=== PATIENT | female | born 2000 | race Caucasian/White ===

== ENCOUNTER 2022-08-03 17:53 | Emergency (ER) | payer OTHER ==
[~2022-08-03] VITALS: Ht 157.5 cm; Wt 83.9 kg
[2022-08-03 18:05] VITALS: BP 145/98; PULSE 77; RESP 17; TEMP 97.9; O2SAT 97
--- NOTE | 2022-08-03 18:10 | NUR ---
pt to beka reyez steady gait.
[2022-08-03 18:42] LABS: BASOPHILS # (AUTO) 0.1 K/uL (0.00-0.22); BASOPHILS % (AUTO) 0.6 % (0.0-2.0); EOSINOPHILS # (AUTO) 0.3 K/uL (0-0.4); EOSINOPHILS % (AUTO) 3.1 % (0.0-4.0); HEMATOCRIT 43.9 % (36-48); HEMOGLOBIN 15.6 g/dL (12.0-16.0); LYMPHOCYTES # (AUTO) 3.3 K/uL (2.5-16.5); LYMPHOCYTES % (AUTO) 31.1 % (20.5-51.1); MEAN CORPUSCULAR HEMOGLOBIN 30 pg (27-31); MEAN CORPUSCULAR HGB CONC 36 g/dL (33-37); MEAN CORPUSCULAR VOLUME 85.5 fL (80-94); MONOCYTES # (AUTO) 0.9 K/uL (0.8-1.0); MONOCYTES % (AUTO) 8.2 % (1.7-9.3); NEUTROPHILS # (AUTO) 6.1 K/uL (1.8-7.7); PLATELET COUNT (AUTO) 346 K/uL (140-450); RED BLOOD CELL COUNT(AUTO) 5.13 MIL/uL (4.20-5.40); RED CELL DISTRIBUTION WIDTH 12.7 % (11.6-13.7); WHITE BLOOD COUNT (AUTO) 10.7 K/uL (4.8-10.8)
[2022-08-03 18:52] LABS: BILIRUBIN,URINE NEGATIVE (NEGATIVE); BLOOD, URINE 3+ (NEGATIVE); LEUKOCYTE ESTERASE ,URINE TRACE (NEGATIVE); NITRITE, URINE POSITIVE (NEGATIVE); UGLUCOSE NEGATIVE (NEGATIVE)
[2022-08-03 18:53] LABS: APPEARANCE,URINE HAZY (CLEAR); COLOR,URINE AMBER (YELLOW)
[2022-08-03 18:55] LABS: ALBUMIN 4.2 g/dL (3.4-5.0); ANION GAP 10.6 (8-16); CARBON DIOXIDE 31.3 mmol/L (21-32); CREATININE 0.7 mg/dL (0.6-1.3); POTASSIUM 3.9 mmol/L (3.5-5.1); TOTAL BILIRUBIN 0.8 mg/dL (0.0-1.0)
[2022-08-03] MEDS ORDERED: IBUPROFEN 600 MG TAB PO ONE (18:55)
--- NOTE | 2022-08-03 19:03 | NUR ---
PT AMBULATED TO BED 5
--- NOTE | 2022-08-03 19:30 | NUR ---
Ultrasound at bedside.
--- NOTE | 2022-08-03 19:40 | NUR ---
pt resting on bed. A/Ox4. not i distress. on monitor
--- NOTE | 2022-08-03 21:53 | NUR ---
dr. suárez examining the pt.
[2022-08-03] MEDS ORDERED: NITR100C7 PO (22:18)
[2022-08-03] MEDS ORDERED: IBUP-2213 PO (22:18)
[2022-08-03] MEDS ORDERED: MEDR10TA PO (22:18)
[2022-08-03 22:27] VITALS: BP 134/90; PULSE 77; RESP 17; TEMP 97.9; O2SAT 97
--- NOTE | 2022-08-03 22:27 | NUR ---
Patient discharged with v/s stable. Written and verbal after care instructions given and explained. Patient alert, oriented and verbalized understanding of instructions. Ambulatory with steady gait. All questions addressed prior to discharge. ID band removed. Patient advised to follow up with PMD. Rx given to pt. Patient educated on indication of medication including possible reaction and side effects. Opportunity to ask questions provided and answered.
== END 2022-08-03 22:27 | disposition home or self-care (01) ==
LOC: MED 17:53
DX: N93.9 Abnormal uterine and vaginal bleeding, unspecified (principal); N39.0 Urinary tract infection, site not specified; Z79.899 Other long term (current) drug therapy
CPT/HCPCS: 36415; 76856; 80053; 81001; 81025; 85025; 87086; 93976; 99284; Q0092

== ENCOUNTER 2022-12-19 19:29 | Emergency (ER) | payer OTHER ==
[~2022-12-19] VITALS: Ht 160 cm; Wt 81.6 kg
[~2022-12-19 19:29] MED LIST: IBUP-2213 PO; MEDR10TA PO; NITR100C7 PO
[2022-12-19 19:47] VITALS: BP 167/87; PULSE 72; RESP 16; TEMP 97.2; O2SAT 98
[2022-12-19] MEDS ORDERED: IBUP-2213 PO (20:14)
[2022-12-19] MEDS ORDERED: SUD30 PO (20:14)
[2022-12-19] MEDS ORDERED: FLONAS NS (20:15)
[2022-12-19 20:21] VITALS: BP 167/87; PULSE 72; RESP 16; TEMP 97.2; O2SAT 98
== END 2022-12-19 20:22 | disposition home or self-care (01) ==
LOC: MED 19:29
DX: J06.9 Acute upper respiratory infection, unspecified (principal); H92.02 Otalgia, left ear; Z79.899 Other long term (current) drug therapy; Z79.1 Long term (current) use of non-steroidal anti-inflammatories (NSAID)
CPT/HCPCS: 99283

== ENCOUNTER 2023-10-17 23:30 | Emergency (ER) | payer SELFPAY ==
[~2023-10-17] VITALS: Ht 160 cm; Wt 72.6 kg
[~2023-10-17 23:30] MED LIST changes: +FLONAS NS; +SUD30 PO
[2023-10-17 23:42] VITALS: BP 171/122; PULSE 110; RESP 24; TEMP 96.9; O2SAT 99
[2023-10-18 00:41] LABS: APPEARANCE,URINE CLEAR (CLEAR); BILIRUBIN,URINE NEGATIVE (NEGATIVE); BLOOD, URINE NEGATIVE (NEGATIVE); COLOR,URINE YELLOW (YELLOW); LEUKOCYTE ESTERASE ,URINE NEGATIVE (NEGATIVE); NITRITE, URINE NEGATIVE (NEGATIVE); PROTEIN,URINE NEGATIVE (NEGATIVE); UGLUCOSE NEGATIVE (NEGATIVE); UROBILINOGEN,URINE 0.2 EU/dL (0.2 - 1)
[2023-10-18 02:44] LABS: BASOPHILS # (AUTO) 0.2 K/uL (0.00-0.22); BASOPHILS % (AUTO) 0.6 % (0.0-2.0); HEMATOCRIT 43.7 % (36-48); HEMOGLOBIN 15.1 g/dL (12.0-16.0); LYMPHOCYTES % (AUTO) 8.1 % (20.5-51.1); MEAN CORPUSCULAR HEMOGLOBIN 30 pg (27-31); MEAN CORPUSCULAR HGB CONC 34 g/dL (33-37); MEAN CORPUSCULAR VOLUME 85.7 fL (80-94); MONOCYTES # (AUTO) 1.1 K/uL (0.8-1.0); MONOCYTES % (AUTO) 4.3 % (1.7-9.3); NEUTROPHILS # (AUTO) 21.6 K/uL (1.8-7.7); PLATELET COUNT (AUTO) 382 K/uL (140-450); RED CELL DISTRIBUTION WIDTH 12.7 % (11.6-13.7); WHITE BLOOD COUNT (AUTO) 24.8 K/uL (4.8-10.8)
[2023-10-18 02:52] LABS: ANION GAP 13.7 (8-16); CALCIUM 9.1 mg/dL (8.5-10.1); CARBON DIOXIDE 27.1 mmol/L (21-32); CREATININE 0.7 mg/dL (0.6-1.3); POTASSIUM 3.8 mmol/L (3.5-5.1)
[2023-10-18] MEDS ORDERED: NAPR-337 PO (06:16)
[2023-10-18] MEDS ORDERED: METR-435 PO (06:16)
[2023-10-18 06:20] VITALS: BP 128/76; PULSE 71; RESP 16; TEMP 98.1; O2SAT 98
== END 2023-10-18 06:20 | disposition home or self-care (01) ==
LOC: MED 23:30
DX: R10.30 Lower abdominal pain, unspecified (principal); R11.10 Vomiting, unspecified; Z79.1 Long term (current) use of non-steroidal anti-inflammatories (NSAID); Z79.899 Other long term (current) drug therapy
CPT/HCPCS: 36415; 76856; 80048; 81003; 81025; 85025; 87210; 99285; Q0092